=== PATIENT | male | born 1970 | race Caucasian/White ===

== ENCOUNTER 2016-11-18 12:55 | Emergency (ER) | payer OTHER ==
[~2016-11-18] VITALS: Ht 167.6 cm; Wt 70.0 kg
[~2016-11-18 12:55] MED LIST: AMLO2.5T2 PO; CHLO10CA6 PO; CHLO5CAP2 PO; PANT40TA4 PO
[2016-11-18 13:02] VITALS: Ht 167.6 cm; Wt 70.0 kg
--- NOTE | 2016-11-18 13:31 | RADRPT ---
PROCEDURE: CT brain without contrast CLINICAL INDICATION: Head trauma/injury TECHNIQUE: CT of the brain without contrast performed on a multidetector CT scanner, with multiplan ar reformats. One or more of the following dose reduction techniques were used: Automated exposure control, adjustment in mA and / or kV according to patient size, use of iterative reconstructive valerie hnique. CTDIvol = 44 mGy; DLP = 720 mGy-cm. COMPARISON: 05/03/2016 FINDINGS: No acute intracranial hemorrhage is identified. No extra-axial fluid collection is seen. There is no mass effect. No midline shift is identified. Ventricles and sulci are mildly enlarged compatible with generalized volume loss. There are minimal areas of hypodensity in the periventricular - deep white matter which are nonspeci fic but suggestive of chronic small vessel ischemic changes. Dominique-white differentiation is preserve d. Atherosclerotic calcifications of the intracranial internal carotid arteries are noted. There is soft tissue swelling in the superior left periorbital region and adjacent left forehead sca lp without underlying fracture or orbital injury identified. Mastoid air cells and imaged paranasal sinuses grossly clear. IMPRESSION: 1. No evidence of acute intracranial pathology. 2. Mild generalized volume loss, with minimal chronic small vessel ischemic changes. 3. Left periorbital soft tissue/forehead scalp swelling. RPTAT: GG .Gurpreet Zimmerman MD, Date Time Electronically viewed and signed by .Gurpreet Zimmerman MD, on 11/18/2016 13:31 .O/
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
[2016-11-18 14:39] VITALS: BP 135/78; PULSE 79; RESP 19; TEMP 97.9
== END 2016-11-18 15:18 | disposition home or self-care (01) ==
LOC: E/R 12:55
DX: F10.120 Alcohol abuse with intoxication, uncomplicated (principal); R51 Headache
CPT/HCPCS: 70450

== ENCOUNTER 2017-01-31 05:43 | Inpatient (IN) | payer MEDICAID, OTHER ==
[2017-01-31] VITALS (8 sets, daily range): BP systolic 140–169; BP diastolic 63–96; PULSE 62–80; RESP 17–22; TEMP 98.6; Ht 162.6 cm; Wt 70.5 kg
[~2017-01-31] VITALS: Ht 162.6 cm; Wt 70.5 kg
[2017-01-31] MEDS ORDERED: SOD CHLORIDE 0.9% 500 ML IV STA (06:13)
[2017-01-31] MEDS ORDERED: PANTOPRAZOLE 40 MG INJ IV STA ×2 (06:13→09:07)
[2017-01-31 06:50] LABS: ADD SCAN DIFF NO
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
[2017-01-31 06:55] LABS: ABNORMAL IP MESSAGE 1; BASOPHIL # 0.1 10^3/ul (0.0-0.1); BASOPHILS % 1.4 % (0.0-2.0); EOSINOPHILS # 0.2 10^3/ul (0.0-0.5); EOSINOPHILS % 3.5 % (0.0-7.0); HEMATOCRIT 42.4 % (42.0-52.0); HEMOGLOBIN 13.9 g/dl (14.0-18.0); LYMPHOCYTES # 0.9 10^3/ul (0.8-2.9); LYMPHOCYTES % 16.3 % (15.0-51.0); MEAN CORPUSCULAR HEMOGLOBIN 30.9 pg (29.0-33.0); MEAN CORPUSCULAR HGB CONC 32.8 g/dl (32.0-37.0); MEAN CORPUSCULAR VOLUME 94.2 fl (82.0-101.0); MONOCYTE # 0.6 10^3/ul (0.3-0.9); MONOCYTES % 11.2 % (0.0-11.0); NEUTROPHIL # 3.8 10^3/ul (1.6-7.5); NEUTROPHILS % 67.4 % (39.0-77.0); RED CELL DISTRIBUTION WIDTH 15.6 % (11.5-14.5); WHITE BLOOD COUNT 5.7 10^3/ul (4.8-10.8)
[2017-01-31] MEDS ORDERED: ONDANSETRON 4 MG INJ IV STA (07:06)
[2017-01-31 07:12] LABS: INR 0.86; PROTIME 11.7 Sec (12.2-14.2); PT RATIO 0.9
[2017-01-31 07:13] LABS: PARTIAL THROMBOPLASTIN TIME 30.6 Sec (25.0-35.0)
[2017-01-31 07:17] LABS: ALBUMIN 4.6 g/dl (3.3-4.9); MEAN PLATELET VOLUME 10.9 fl (7.4-10.4)
[2017-01-31 07:19] LABS: CREATININE 0.58 mg/dl (0.61-1.24)
[2017-01-31 07:20] LABS: ALBUMIN/GLOBULIN RATIO 0.95; BILIRUBIN,INDIRECT 0.6 mg/dl (0-1.1); BILIRUBIN,TOTAL 0.6 mg/dl (0.2-1.3); CALCIUM 8.9 mg/dl (8.4-10.2); TOTAL PROTEIN 9.4 g/dl (6.1-8.1)
--- NOTE | 2017-01-31 07:39 | RADRPT ---
PROCEDURE: XR Chest. CLINICAL INDICATION: GI bleed TECHNIQUE: Portable single view of the chest COMPARISON: 06/29 FINDINGS: Top normal heart size. Minimally ectatic aorta. Slightly reduced lung volumes without definite foc al infiltrate, pleural effusion, or overt congestive heart failure. No bony abnormality is seen. IMPRESSION: No definite acute pulmonary disease. RPTAT: HLBE Milagros Givens Physician Date Time Electronically viewed and signed by Milagros Givens, Physician on 01/31/2017 07:39 CHARITO/
[2017-01-31 08:01] LABS: PLATELET ESTIMATE PLT APPEAR DECREASED
[2017-01-31 08:02] LABS: PLATELET COUNT 49 10^3/UL (140-415)
[2017-01-31] MEDS ORDERED: PANTOPRAZOLE IV 80 MG in SOD CHLORIDE 0.9% 100 ML IV STA (09:07)
[2017-01-31] MEDS ORDERED: ACETAMINOPHEN 325 MG TAB PO PRN ×2 (09:30→10:00)
[2017-01-31] MEDS ORDERED: ONDANSETRON 4 MG INJ IV PRN ×2 (09:30→10:00)
[2017-01-31] MEDS ORDERED: LORAZEPAM 2 MG INJ IV ONE (09:30)
[2017-01-31] MEDS ORDERED: DOCUSATE SODIUM 100 MG CAP PO PRN (10:00)
[2017-01-31] MEDS ORDERED: ALBUTEROL/IPRATROPIUM (NEB) 3 ML AMP HHN PRN (10:00)
[2017-01-31] MEDS ORDERED: NACL 0.9% 3 ML SYG IV SCH (10:00)
[2017-01-31] MEDS ORDERED: MAGNESIUM HYDROXIDE 30ML CUP PO PRN (10:00)
[2017-01-31] MEDS ORDERED: NA PHOSPHATE/BIPHOS 133 ML ENEMA PR PRN (10:00)
[2017-01-31] MEDS ORDERED: morphine 2 MG INJ IV PRN (10:00)
[2017-01-31] MEDS ORDERED: NITROGLYCERIN (SL) 0.4 MG TAB SL PRN (10:00)
[2017-01-31] MEDS ORDERED: HYDROCODONE/APAP (5/325) TAB PO PRN (10:00)
[2017-01-31] MEDS ORDERED: LORAZEPAM 2 MG INJ IV PRN (10:00)
[2017-01-31] MEDS: SOD CHLORIDE 0.9% 1,000 ML IV SCH ×2 (10:40→19:59)
[2017-01-31] MEDS: OCTREOTIDE 500 MCG in SOD CHLORIDE 0.9% 49 ML IV SCH ×2 (10:56→23:30)
[2017-01-31 11:37] LABS: HAAIG REFLEX REFLEX FILED
--- NOTE | 2017-01-31 11:37 | CONS ---
Date/Time of Note Date/Time of Note DATE: 01/31/17 TIME: 11:36 Assessment/Plan Assessment/Plan Additional Assessment/Plan Acute anemia Evaluate esophageal varices vs other etiology Monitor H&H every 8 hours, transfuse 2 units for hemoglobin less than 7.5 Monitor labs Continue PPI and Octreotide drips EGD tomorrow with Dr. Moncada, pt advised of R/B/A to procedure and provide informed consent to proceed Transaminitis Evaluate if 2/2 to infectious process vs EtOH vs viral Acute Hepatitis panel Abdominal US Trend LFTs Further recommendations depend on clinical course Patient seen in collaboration with Dr. Moncada Consultation Date/Type/Reason Admit Date/Time Jan 31, 2017 at 09:17 Type of Consultation: Gastroenterology Reason for Consultation Acute hematemesis Hx of Present Illness Mr. Brice Robles is a 46-year-old man that presented with reports of abrupt hematemesis that started at 1 AM this morning. Patient states he woke up and started vomiting blood. Patient reports previous episode but unable to provide concise history. Patient has had previous hospitalization for treatment of alcohol intoxication. Patient unable to provide history in regard to current alcohol consumption. Patient unsure of previous endoscopic evaluation for hematemesis. Past Surgical History Past Surgical Hx: no surgical history Social History Smoking Status: Former smoker Exam/Review of Systems Vital Signs Vitals Vital Signs Date Time Temp Pulse Resp B/P Pulse Ox O2 Delivery O2 Flow Rate FiO2 01/31/17 11:01 98.6 80 21 133/82 94 Room Air Exam Constitutional: alert, oriented, well developed, mildly distressed Psych: nl mood/affect Head: normocephalic Eyes: EOMI, nl conjunctiva, nl lids ENMT: nl external ears & nose, blood tinged lips & teeth, nl nasal mucosa & septum Respiratory: clear to auscultation, normal air movement Cardiovascular: regular rate and rhythm Gastrointestinal: soft, non-tender Musculoskeletal: nl extremities to inspection Neurological: MANUSCRIPT READER II-XII intact Results Result Diagram: 01/31/17 0620 01/31/17 0620 Results 24 hrs Laboratory Tests Test 01/31/17 06:20 White Blood Count 5.7 Red Blood Count 4.50 L Hemoglobin 13.9 L Hematocrit 42.4 Mean Corpuscular Volume 94.2 Mean Corpuscular Hemoglobin 30.9 Mean Corpuscular Hemoglobin Concent 32.8 Red Cell Distribution Width 15.6 H Platelet Count 49 L Mean Platelet Volume 10.9 #H Neutrophils % 67.4 Lymphocytes % 16.3 Monocytes % 11.2 H Eosinophils % 3.5 Basophils % 1.4 Nucleated Red Blood Cells % 0.0 Neutrophils # 3.8 Lymphocytes # 0.9 Monocytes # 0.6 Eosinophils # 0.2 Basophils # 0.1 Nucleated Red Blood Cells # 0.0 Platelet Estimate PLT APPEAR DECREASED Large Platelets FEW Prothrombin Time 11.7 L Prothrombin Time Ratio 0.9 INR International Normalized Ratio 0.86 Activated Partial Thromboplast Time 30.6 Sodium Level 147 H Potassium Level 4.0 Chloride Level 105 Carbon Dioxide Level 28 Anion Gap 18 H Blood Urea Nitrogen 5 L Creatinine 0.58 L Glucose Level 98 Calcium Level 8.9 Total Bilirubin 0.6 Direct Bilirubin 0.00 Indirect Bilirubin 0.6 Aspartate Amino Transf (AST/SGOT) 332 H Alanine Aminotransferase (ALT/SGPT) 127 H Alkaline Phosphatase 215 H Total Protein 9.4 H Albumin 4.6 Globulin 4.80 H Albumin/Globulin Ratio 0.95 Medications Medications Current Medications Ondansetron HCl (Zofran Inj) 4 mg Q6H PRN IV NAUSEA AND/OR VOMITING; Start at 10:00 Acetaminophen (Tylenol Tab) 650 mg Q6H PRN PO PAIN LEVEL 1-3 OR FEVER; Start at 10:00 Acetaminophen/ Hydrocodone Bitart ([place] (5/325)) 1 tab Q6H PRN PO MODERATE PAIN LEVEL 4-6; Start 01/31/17 at 10:00 Morphine Sulfate (morphine) 2 mg Q4H PRN IV SEVERE PAIN LEVEL 7-10; Start 01/31 at 10:00 Docusate Sodium (Colace) 100 mg Q12H PRN PO CONSTIPATION; Start 01/31/17 at 10: 00 Magnesium Hydroxide (Milk Of Mag) 30 ml DAILY PRN PO CONSTIPATION; Start at 10:00 Sodium Biphosphate/ Sodium Phosphate (Fleet Enema) 133 ml DAILY PRN ND CONSTIPATION; Start 01/31/17 at 10:00 Lorazepam 1 mg 1 mg Q1H PRN IV CONTROL WITHDRAWAL SYMPTOMS; Start 01/31/17 at 10:00 Sodium Chloride (NS) 1,000 ml @ 100 mls/hr Q10H IV Last administered on t 10:40; Admin Dose 100 MLS/HR; Start 01/31/17 at 09:44 Hydralazine HCl (Apresoline) 10 mg Q6H PRN IV ELEVATED BLOOD PRESSURE; Start at 10:00 Nitroglycerin 1 tab 1 tab Q5M PRN SL ANGINA; Start 01/31/17 at 10:00 Pantoprazole 80 mg/Sodium Chloride 100 ml @ 10 mls/hr Q10H IV ; Start 01/31/17 at 19:00 Octreotide Acetate 500 mcg/ Sodium Chloride 50 ml @ 2.5 mls/hr Q20H IV Last administered on 01/31/17 10:56; Admin Dose 2.5 MLS/HR; Start 01/31/17 at 10:00 Multivitamins/ Thiamine HCl/ Folic Acid/Sodium Chloride (Mvi Adult/ Vitamin B1/ Folic Acid/NS) 1,011.2 ml @ 125 mls/ hr DAILY@09 IVPB ; Start 02/01/17 at 09:00 VICENTA TAN Jan 31, 2017 11:37 Multivitamins/ Thiamine HCl/ Folic Acid/Sodium Chloride (Mvi Adult/ Vitamin B1/ Folic Acid/NS) 1,011.2 ml @ 125 mls/ hr DAILY@09 IVPB ; Start 02/01/17 at 09:00 VICENTA TAN Jan 31, 2017 11:37
[2017-01-31 12:43] LABS: HEPATITIS B CORE ANTIBODY NEGATIVE (NEGATIVE)
--- NOTE | 2017-01-31 14:18 | RADRPT ---
PROCEDURE: Complete abdominal ultrasound. CLINICAL INDICATION: Abdominal pain TECHNIQUE: Dominique scale and color doppler ultrasound images of the abdomen. COMPARISON: None FINDINGS: Pancreas: Not adequately visualized due to overlying bowel gas. Liver: Morphology: Normal in size and contour. Echogenicity: Increased echogenicity of the liver parenchyma suggestive of hepatic steatosis. Focal lesions: None. Main portal vein: Patent with hepatopetal flow. Biliary System: Normal appearing gallbladder wall. No gallstones seen. A small amount of layering sludge is present. No intrahepatic biliary dilatation. Common bile duct diameter: 3.8 mm Kidneys: Right length: 10.0 cm. Right renal cortical thickness is preserved. Left length: 10.8 cm. Left renal cortical thickness is preserved. Normal echogenicity. No hydronephrosis. No renal calculi. No focal renal lesions. Spleen: Normal in size, no focal lesions. No free fluid identified. Normal caliber of the partially visualized aorta. IMPRESSION: Normal gallbladder without gallstones. Increased echogenicity of the liver parenchyma suggestive of hepatic steatosis. RPTAT: AADD .Aayush Duran MD, MD Date Time Electronically viewed and signed by .Aayush Duran MD, MD on 01/31/2017 14:18 .B/
[2017-01-31 14:28] LABS: HEMATOCRIT 37.5 % (42.0-52.0); HEMOGLOBIN 12.2 g/dl (14.0-18.0)
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
[2017-01-31] MEDS: PANTOPRAZOLE IV 80 MG in SOD CHLORIDE 0.9% 100 ML IV SCH (19:59)
[2017-02-01] VITALS (20 sets, daily range): BP systolic 131–184; BP diastolic 71–111; PULSE 58–92; RESP 17–24
[2017-02-01] MEDS: PANTOPRAZOLE IV 80 MG in SOD CHLORIDE 0.9% 100 ML IV SCH ×2 (05:14→15:10)
[2017-02-01] MEDS: SOD CHLORIDE 0.9% 1,000 ML IV SCH ×2 (05:15→15:44)
[2017-02-01] MEDS: OCTREOTIDE 500 MCG in SOD CHLORIDE 0.9% 49 ML IV SCH (06:00)
[2017-02-01 08:03] LABS: HEMATOCRIT 37.4 % (42.0-52.0); HEMOGLOBIN 12.5 g/dl (14.0-18.0)
[2017-02-01] MEDS: hydrALAzine 20 MG INJ IV PRN ×2 (08:21→15:42)
[2017-02-01 08:23] LABS: INR 1.02; PROTIME 13.4 Sec (12.2-14.2)
[2017-02-01 08:24] LABS: PARTIAL THROMBOPLASTIN TIME 30.3 Sec (25.0-35.0)
[2017-02-01 08:51] LABS: THYROID STIMULATING HORMONE 0.139 MIU/L (0.465-4.680)
[2017-02-01] MEDS: MULTIVITAMINS 10 ML, THIAMINE 100 MG, FOLIC ACID 1 MG in SOD CHLORIDE 0.9% 1,000 ML IVPB SCH ×2 (09:00→18:32)
[2017-02-01 09:19] LABS: ADD SCAN DIFF NO
[2017-02-01 09:25] LABS: ABNORMAL IP MESSAGE 1; BASOPHILS % 0.6 % (0.0-2.0); EOSINOPHILS % 0.3 % (0.0-7.0); HEMOGLOBIN 12.5 g/dl (14.0-18.0); LYMPHOCYTES # 0.4 10^3/ul (0.8-2.9); LYMPHOCYTES % 5.3 % (15.0-51.0); MEAN CORPUSCULAR HGB CONC 32.9 g/dl (32.0-37.0); MEAN CORPUSCULAR VOLUME 94.3 fl (82.0-101.0); MEAN PLATELET VOLUME 11.1 fl (7.4-10.4); MONOCYTE # 0.8 10^3/ul (0.3-0.9); MONOCYTES % 12.1 % (0.0-11.0); NEUTROPHIL # 5.7 10^3/ul (1.6-7.5); NEUTROPHILS % 81.4 % (39.0-77.0); RED BLOOD COUNT 4.03 10^6/ul (4.70-6.10); RED CELL DISTRIBUTION WIDTH 15.1 % (11.5-14.5)
[2017-02-01 09:31] LABS: PLATELET COUNT 76 10^3/UL (140-415)
[2017-02-01 10:11] LABS: POTASSIUM 3.6 mmol/L (3.5-5.1)
[2017-02-01 10:14] LABS: CALCIUM 8.5 mg/dl (8.4-10.2); CREATININE 0.59 mg/dl (0.61-1.24); PHOSPHORUS 2.3 mg/dl (2.5-4.9)
[2017-02-01 10:15] LABS: MAGNESIUM 1.7 mg/dl (1.7-2.5)
[2017-02-01 12:27] LABS: HEMATOCRIT 35.9 % (42.0-52.0); HEMOGLOBIN 12.3 g/dl (14.0-18.0)
--- NOTE | 2017-02-01 12:48 | PN ---
Date/Time of Note Date/Time of Note DATE: 02/01/17 TIME: 12:44 Assessment/Plan VTE Prophylaxis VTE Prophylaxis Intervention: ambulation VTE Contraindication Reason: bleeding Lines/Catheters [facility] Peripheral IV Urinary Cath still in place: No Assessment/Plan Chief Complaint/Hosp Course ASSESSMENT a 46-year-old male coming in with hematemesis with a history of daily alcohol use. 1. Hematemesis. Patient scheduled for EGD today. H&H remained stable 2. Abnormal LFTs likely secondary to alcoholic hepatitis continue to monitor 3. Thrombocytopenia likely secondary to chronic liver disease, status post platelet transfusion. 4. History of hypertension. 5. Conjunctivitis Plan 1. EGD today, further GI recommendations postprocedure 2. Continue PPI 3. Monitor liver function tests 4. Monitor platelets 5. As needed antihypertensives 6. DVT prophylaxis with SCDs. Avoid anticoagulation given bleeding risk. 7. Antibacterial eye ointment. 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 abstinence Problems: Subjective 24 Hr Interval Summary Free Text/Dictation Patient is awake alert and oriented comfortable at rest Complaining of itching of his eyes On examination he has bilateral conjunctivitis No further nausea vomiting Exam/Review of Systems Vital Signs Vitals Vital Signs Date Time Temp Pulse Resp B/P Pulse Ox O2 Delivery O2 Flow Rate FiO2 02/01/17 12:14 73 02/01/17 11:44 98.1 20 164/98 96 02/01/17 08:00 Nasal Cannula 2.0 Intake and Output 01/31/17 01/31/17 02/01/17 15:00 23:00 07:00 Intake Total 535 ml 1540.5 ml Output Total 800 ml 1500 ml Balance -265 ml 40.5 ml Exam GENERAL: Well-nourished well-developed gentleman comfortable at rest VITAL SIGNS: per chart NECK: Supple. No JVD or lymphadenopathy. Bilateral conjunctivitis CARDIAC EXAM: S1, S2. No added sounds or murmurs. CHEST: clear bilaterally, No added sounds, rales or wheezes ABDOMEN: Soft, nontender. No guarding or rebound. EXTREMITIES: No cyanosis, clubbing or edema. NEUROLOGIC: Generalized weakness. No focal deficits. Results Result Diagram: 02/01/17 1150 02/01/17 0740 Results 24 hrs Laboratory Tests Test 01/31/17 14:05 02/01/17 07:00 02/01/17 07:05 02/01/17 07:40 Hemoglobin 12.2 L 12.5 L 12.5 L Hematocrit 37.5 L 38.0 L 37.4 L White Blood Count 7.0 # Red Blood Count 4.03 L Mean Corpuscular Volume 94.3 Mean Corpuscular Hemoglobin 31.0 Mean Corpuscular Hemoglobin Concent 32.9 Red Cell Distribution Width 15.1 H Platelet Count 76 #L Mean Platelet Volume 11.1 H Neutrophils % 81.4 H Lymphocytes % 5.3 L Monocytes % 12.1 H Eosinophils % 0.3 Basophils % 0.6 Nucleated Red Blood Cells % 0.0 Neutrophils # 5.7 Lymphocytes # 0.4 L Monocytes # 0.8 Eosinophils # 0.0 Basophils # 0.0 Nucleated Red Blood Cells # 0.0 Prothrombin Time 13.4 Prothrombin Time Ratio 1.0 INR International Normalized Ratio 1.02 Activated Partial Thromboplast Time 30.3 Hemoglobin A1c 5.4 Triglycerides Level 78 Cholesterol Level 318 H LDL Cholesterol, Calculated HDL Cholesterol 166 H Cholesterol/HDL Ratio Thyroid Stimulating Hormone (TSH) 0.139 L Sodium Level 139 Potassium Level 3.6 Chloride Level 98 Carbon Dioxide Level 28 Anion Gap 17 H Blood Urea Nitrogen 9 Creatinine 0.59 L Glucose Level 123 Calcium Level 8.5 Phosphorus Level 2.3 L Magnesium Level 1.7 Test 02/01/17 11:50 Hemoglobin 12.3 L Hematocrit 35.9 L Medications Medications Current Medications Ondansetron HCl (Zofran Inj) 4 mg Q6H PRN IV NAUSEA AND/OR VOMITING; Start at 10:00 Acetaminophen (Tylenol Tab) 650 mg Q6H PRN PO PAIN LEVEL 1-3 OR FEVER; Start at 10:00 Acetaminophen/ Hydrocodone Bitart ([place] (5/325)) 1 tab Q6H PRN PO MODERATE PAIN LEVEL 4-6; Start 01/31/17 at 10:00 Morphine Sulfate (morphine) 2 mg Q4H PRN IV SEVERE PAIN LEVEL 7-10; Start 01/31 at 10:00 Docusate Sodium (Colace) 100 mg Q12H PRN PO CONSTIPATION; Start 01/31/17 at 10: 00 Magnesium Hydroxide (Milk Of Mag) 30 ml DAILY PRN PO CONSTIPATION; Start at 10:00 Sodium Biphosphate/ Sodium Phosphate (Fleet Enema) 133 ml DAILY PRN [place] CONSTIPATION; Start 01/31/17 at 10:00 Lorazepam 1 mg 1 mg Q1H PRN IV CONTROL WITHDRAWAL SYMPTOMS Last administered on 01/31/17 20:31; Admin Dose 1 MG; Start 01/31/17 at 10:00 Sodium Chloride (NS) 1,000 ml @ 100 mls/hr Q10H IV Last administered on 05:15; Admin Dose 100 MLS/HR; Start 01/31/17 at 09:44 Hydralazine HCl (Apresoline) 10 mg Q6H PRN IV ELEVATED BLOOD PRESSURE Last administered on 02/01/17 08:21; Admin Dose 10 MG; Start 01/31/17 at 10:00 Nitroglycerin 1 tab 1 tab Q5M PRN SL ANGINA; Start 01/31/17 at 10:00 Pantoprazole 80 mg/Sodium Chloride 100 ml @ 10 mls/hr Q10H IV Last administered on 02/01/17 05:14; Admin Dose 10 MLS/HR; Start 01/31/17 at 19:00 Octreotide Acetate 500 mcg/ Sodium Chloride 50 ml @ 2.5 mls/hr Q20H IV Last administered on 01/31/17 23:30; Admin Dose 2.5 MLS/HR; Start 01/31/17 at 10:00 Multivitamins/ Thiamine HCl/ Folic Acid/Sodium Chloride (Mvi Adult/ Vitamin B1/ Folic Acid/NS) 1,011.2 ml @ 125 mls/ hr DAILY@09 IVPB ; Start 02/01/17 at 09:00 FRANCESCO SANCHEZ MD, FCCP February 01, 2017 12:48
[2017-02-01] MEDS: CIPROFLOXACIN 0.3% 3.5 GM OPH OINT BOTH EYES SCH ×2 (15:10→21:12)
[2017-02-01] MEDS ORDERED: PROPOFOL 20 ML ONE (16:59)
[2017-02-01] MEDS ORDERED: FENTAnyl 50 MCG/ML VIAL ONE (16:59)
[2017-02-01] MEDS ORDERED: LIDOCAINE 2% (SDV) 5 ML INJ ONE (16:59)
[2017-02-01] MEDS: PANTOPRAZOLE 40 MG INJ IV SCH (18:31)
[2017-02-01 19:07] LABS: HEMATOCRIT 38.3 % (42.0-52.0)
[2017-02-02 00:48] LABS: HEMATOCRIT 36.1 % (42.0-52.0); HEMOGLOBIN 12.4 g/dl (14.0-18.0)
[2017-02-02] MEDS: SOD CHLORIDE 0.9% 1,000 ML IV SCH ×2 (02:09→11:44)
--- NOTE | 2017-02-02 02:11 | GILP ---
DATE OF PROCEDURE: 02/01/2017 DATE: 02/01/2017 NAME OF PROCEDURE: Esophagogastroduodenoscopy with biopsies. SURGEON: Marisela Moncada MD. PREMEDICATION: Monitored anesthesia care by anesthesiologist. INSTRUMENT USED: Olympus panendoscope. TECHNIQUE: After informed consent, with the patient/relatives understanding the procedure, its indic ations, potential risks, and complications, including but not limited to: allergic reaction, bleedin g, perforation or infection, and after all pertinent questions were answered to the patient's satisf action, the patient/relatives signed witnessed informed consent. Following this, premedication was administered slowly IV push under careful cardiovascular and respi ratory monitoring with pulse oximetry, automatic blood pressure and athletic monitor. Once the sedative effect was achieved the patient was place in the left lateral decubitus, the panen doscope was introduced and advanced under visual control. Careful examination of the upper gastrointestinal tract, both on insertion as well as withdrawal of the instrument disclosed the following findings: ESOPHAGUS: The distal esophagus shows small grade I/IV esophageal varices with no stigmata of recen t bleeding. STOMACH: Upon entrance to the stomach, air was insufflated. The gastric mcelroy distended normally. There is significant erythema, edema, and friability of the mucosa consistent with alcoholic gastri tis or gastropathy. Biopsies were obtained to rule out H. pylori infection. PYLORUS: The pylorus appears patent and within normal limits, with no evidence of gastric outlet ob struction. DUODENUM: The duodenal mucosa was carefully examined in the duodenal bulb as well as the second por tion of the duodenum and appears unremarkable with no evidence of duodenitis, ulcer, or neoplasm. The instrument was then withdrawn, the patient tolerated the procedure well and was transfer out of the endoscopy suite awake, and in good condition to continue recovery under observation IMPRESSION: 1. Grade I/IV esophageal varices with no stigmata of recent bleeding. 2. Gastritis, moderate to severe gastritis, likely alcoholic in nature. Rule out Helicobacter pylo ri infection. Biopsies obtained. 3. No active bleeding identified. PLAN: We will discontinue octreotide and Protonix drip. PPI b.i.d. as appropriate. Advance diet a s tolerated. Abstinence will be critical to the patient's well-being. Pathology will be reviewed a s soon as available. Dictated By: MARISELA MONCADA MS/NTS Conf#: [id number] DID#: [id number] CC: MARISELA MONCADA; FAZAL BECKER;*[facility]*
[2017-02-02 03:50] VITALS: BP_SYST 69; RESP 20
[2017-02-02] MEDS: PANTOPRAZOLE 40 MG INJ IV SCH (05:31)
[2017-02-02 07:39] LABS: HEMATOCRIT 37.5 % (42.0-52.0); HEMOGLOBIN 12.6 g/dl (14.0-18.0)
[2017-02-02 08:11] VITALS: BP 148/93; RESP 19
[2017-02-02] MEDS: CIPROFLOXACIN 0.3% 3.5 GM OPH OINT BOTH EYES SCH (08:33)
[2017-02-02 11:28] LABS: ADD SCAN DIFF NO
[2017-02-02 11:48] LABS: ABNORMAL IP MESSAGE 1; BASOPHILS % 0.6 % (0.0-2.0); EOSINOPHILS % 0.6 % (0.0-7.0); HEMATOCRIT 36.9 % (42.0-52.0); HEMOGLOBIN 12.5 g/dl (14.0-18.0); LYMPHOCYTES # 0.3 10^3/ul (0.8-2.9); LYMPHOCYTES % 4.1 % (15.0-51.0); MEAN CORPUSCULAR HEMOGLOBIN 31.6 pg (29.0-33.0); MEAN CORPUSCULAR HGB CONC 33.9 g/dl (32.0-37.0); MEAN CORPUSCULAR VOLUME 93.2 fl (82.0-101.0); MEAN PLATELET VOLUME 10.7 fl (7.4-10.4); MONOCYTE # 0.7 10^3/ul (0.3-0.9); MONOCYTES % 9.7 % (0.0-11.0); NEUTROPHIL # 5.7 10^3/ul (1.6-7.5); NEUTROPHILS % 84.7 % (39.0-77.0); PLATELET COUNT 89 10^3/UL (140-415); RED BLOOD COUNT 3.96 10^6/ul (4.70-6.10); RED CELL DISTRIBUTION WIDTH 14.6 % (11.5-14.5); WHITE BLOOD COUNT 6.8 10^3/ul (4.8-10.8)
[2017-02-02 11:54] LABS: CALCIUM 9.1 mg/dl (8.4-10.2); CREATININE 0.64 mg/dl (0.61-1.24); POTASSIUM 3.2 mmol/L (3.5-5.1)
[2017-02-02 12:08] VITALS: BP 122/72; RESP 19
--- NOTE | 2017-02-02 12:51 | PDOCDIS ---
Discharge Instructions DIAGNOSIS Discharge Diagnosis: severe gastritis CONDITION Patient Condition: Good HOME CARE INSTRUCTIONS: Diet Instructions: RegularSpecial Diet: INPATIENT ACTIVITY: Activity Restrictions: No Restrictions FOLLOW UP/APPOINTMENTS Appointments primary care 1 week. FRANCESCO SANCHEZ MD, [facility] February 02, 2017 12:51
[2017-02-02 12:53] LABS: HEMATOCRIT 40.2 % (42.0-52.0); HEMOGLOBIN 13.4 g/dl (14.0-18.0)
--- NOTE | 2017-02-02 13:17 | DS ---
DATE OF ADMISSION: 01/31/2017 DATE OF DISCHARGE: 02/02/2017 DISCHARGE DIAGNOSES: 1. Grade IV esophageal varices. 2. Moderate to severe gastritis. SUMMARY: This is a 46-year-old gentleman with a history of heavy alcohol consumption, came in with a new onset of hematemesis. No nausea, no vomiting, no hemodynamic compromise. On admission, hemog lobin was stable at 13.9 and he did not require blood transfusion. He drinks 4 to 5 bottles of beer daily. No history of drug abuse. The patient underwent endoscopy by Dr. Coral campbell, was found to have grade I/IV esophageal varices and severe gastritis, with the recommendation to continue proton pump inhibitor b.i.d. Hemodynamic ally stable. Diet was advanced post-procedure and the patient to be discharged home to follow up [facility] primary care physician and gastroenterology in 1 week's time. He should continue his current ant ihypertensives, continue Librium 10 mg p.o. daily x3 days. Continue proton pump inhibitor, Protonix 40 mg p.o. b.i.d. x1 month. CONDITION ON DISCHARGE: Stable. ACTIVITY: As tolerated. DIET: Regular. Dictated By: FRANCESCO HERNANDEZ/LEATHA Conf#: [id number] DID#: [id number]
--- NOTE | 2017-02-02 13:26 | PN ---
Date/Time of Note Date/Time of Note DATE: 02/02/17 TIME: 13:22 Assessment/Plan VTE Prophylaxis VTE Prophylaxis Intervention: SCD's Lines/Catheters IV [facility] [place] Urinary Cath still in place: No Assessment/Plan Assessment/Plan Assessment * Hematemesis controlled * EGD 02/01/17 * Grade I/IV esophageal varices with no stigmata of recent bleeding. . Gastritis, moderate to severe gastritis, likely alcoholic in nature. Rule out Helicobacter pylori infection. Biopsies obtained. No active bleeding identified. * Chronic alcoholism Plan * Stable for outpatient management Subjective 24 Hr Interval Summary Free Text/Dictation * Course reviewed with RN * EGD 02/01/2017 Grade I/IV esophageal varices with no stigmata of recent bleeding. . Gastritis, moderate to severe gastritis, likely alcoholic in nature. Rule out Helicobacter pylori infection. Biopsies obtained. No active bleeding identified. Exam/Review of Systems Vital Signs Vitals Vital Signs Date Time Temp Pulse Resp B/P Pulse Ox O2 Delivery O2 Flow Rate FiO2 02/02/17 08:11 98.3 80 19 148/93 96 02/01/17 19:00 Nasal Cannula 2.0 Intake and Output 02/01/17 02/01/17 02/02/17 15:00 23:00 07:00 Intake Total 500 ml 1861.2 ml Output Total 1900 ml 1700 ml Balance -1400 ml 161.2 ml Exam Constitutional: alert, oriented Head: normocephalic Eyes: nl conjunctiva Neck: non-tender, supple Respiratory: clear to auscultation, normal air movement Cardiovascular: nl pulses, regular rate and rhythm Gastrointestinal: non-tender, soft Musculoskeletal: nl extremities to inspection, nl gait and stance Extremities: normal pulses Results Result Diagram: 02/02/17 1225 02/02/17 1103 Results 24 hrs Laboratory Tests Test 02/01/17 18:36 02/02/17 00:35 02/02/17 06:26 02/02/17 11:03 Hemoglobin 13.0 L 12.4 L 12.6 L 12.5 L Hematocrit 38.3 L 36.1 L 37.5 L 36.9 L White Blood Count 6.8 Red Blood Count 3.96 L Mean Corpuscular Volume 93.2 Mean Corpuscular Hemoglobin 31.6 Mean Corpuscular Hemoglobin Concent 33.9 Red Cell Distribution Width 14.6 H Platelet Count 89 L Mean Platelet Volume 10.7 H Neutrophils % 84.7 H Lymphocytes % 4.1 L Monocytes % 9.7 Eosinophils % 0.6 Basophils % 0.6 Nucleated Red Blood Cells % 0.0 Neutrophils # 5.7 Lymphocytes # 0.3 L Monocytes # 0.7 Eosinophils # 0.0 Basophils # 0.0 Nucleated Red Blood Cells # 0.0 Sodium Level 136 Potassium Level 3.2 L Chloride Level 103 Carbon Dioxide Level 25 Anion Gap 11 Blood Urea Nitrogen 11 Creatinine 0.64 Glucose Level 111 Calcium Level 9.1 Test 02/02/17 12:25 Hemoglobin 13.4 L Hematocrit 40.2 L Medications Medications Current Medications Ondansetron HCl (Zofran Inj) 4 mg Q6H PRN IV NAUSEA AND/OR VOMITING Last administered on 02/01/17 18:31; Admin Dose 4 MG; Start 01/31/17 at 10:00 Acetaminophen (Tylenol Tab) 650 mg Q6H PRN PO PAIN LEVEL 1-3 OR FEVER; Start at 10:00 Acetaminophen/ Hydrocodone Bitart ([place] (5/325)) 1 tab Q6H PRN PO MODERATE PAIN LEVEL 4-6; Start 01/31/17 at 10:00 Morphine Sulfate (morphine) 2 mg Q4H PRN IV SEVERE PAIN LEVEL 7-10; Start 01/31 at 10:00 Docusate Sodium (Colace) 100 mg Q12H PRN PO CONSTIPATION Last administered on 08:33; Admin Dose 100 MG; Start 01/31/17 at 10:00 Magnesium Hydroxide (Milk Of Mag) 30 ml DAILY PRN PO CONSTIPATION; Start at 10:00 Sodium Biphosphate/ Sodium Phosphate (Fleet Enema) 133 ml DAILY PRN [place] CONSTIPATION; Start 01/31/17 at 10:00 Lorazepam 1 mg 1 mg Q1H PRN IV CONTROL WITHDRAWAL SYMPTOMS Last administered on 01/31/17 20:31; Admin Dose 1 MG; Start 01/31/17 at 10:00 Sodium Chloride (NS) 1,000 ml @ 100 mls/hr Q10H IV Last administered on 02:09; Admin Dose 100 MLS/HR; Start 01/31/17 at 09:44 Hydralazine HCl (Apresoline) 10 mg Q6H PRN IV ELEVATED BLOOD PRESSURE Last administered on 02/01/17 15:42; Admin Dose 10 MG; Start 01/31/17 at 10:00 Nitroglycerin 1 tab 1 tab Q5M PRN SL ANGINA; Start 01/31/17 at 10:00 Multivitamins/ Thiamine HCl/ Folic Acid/Sodium Chloride (Mvi Adult/ Vitamin B1/ Folic Acid/NS) 1,011.2 ml @ 125 mls/ hr DAILY@09 IVPB Last administered on 02/01 18:32; Admin Dose 125 MLS/HR; Start 02/01/17 at 09:00 Ciprofloxacin HCl (Ciloxan 0.3% Oph Oint) 1 applic BID BOTH EYES Last administered on 02/02/17 08:33; Admin Dose 1 APPLIC; Start 02/01/17 at 14:00 Pantoprazole (Protonix Iv) 40 mg BID@06,18 IV Last administered on 02/02/17 05: 31; Admin Dose 40 MG; Start 02/01/17 at 18:00 MARISELA METZ MD February 02, 2017 13:26
== END 2017-02-02 12:50 | disposition left against medical advice (07) | DRG 433 ==
LOC: FTE 05:43 → MS4 09:17
PROVIDERS: ADMIT Hospitalist; ATTEND Hospitalist
PROC: 0DJ08ZZ Inspection of Upper Intestinal Tract, Via Natural or Artificial Opening Endoscopic (ICD-10-PCS; principal; 2017-02-01 17:30)
DX: K70.30 Alcoholic cirrhosis of liver without ascites (principal); I85.10 Secondary esophageal varices without bleeding; K70.10 Alcoholic hepatitis without ascites; D69.6 Thrombocytopenia, unspecified; F10.20 Alcohol dependence, uncomplicated; K29.20 Alcoholic gastritis without bleeding; I10 Essential (primary) hypertension; H10.9 Unspecified conjunctivitis
CPT/HCPCS: 36415; 36430; 71010; 76700; 80048; 80053; 80061; 82270; 83036; 83735; 84100; 84439; 84443; 85014; 85018; 85025; 85610; 85730; 86704; 86709; 86803; 86850; 86900; 86901; 87340; 88305; 88312; 93005; 96374; 96375; 96376; 97164; C9113; J0360; J2060; J2354; J2405; J3010; J3411; J7030; J7040; P9035

== ENCOUNTER 2018-11-14 19:40 | Emergency (ER) | payer SELFPAY ==
[~2018-11-14] VITALS: Wt 90.9 kg
[~2018-11-14 19:40] MED LIST changes: +PANT40TA3 PO
[2018-11-14] MEDS ORDERED: DIPHTH/TET/ACEL PERTUSS (ADULT) 0.5 ML VIAL IM* ONE (23:30)
[2018-11-15] MEDS ORDERED: AMOX1TAB10 PO (00:20)
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
[2018-11-15 00:35] VITALS: BP 142/76; PULSE 78; RESP 22
== END 2018-11-15 00:35 | disposition home or self-care (01) ==
LOC: FTE 19:40
DX: S61.254A Open bite of right ring finger without damage to nail, initial encounter (principal); W50.3XXA Accidental bite by another person, initial encounter; Y92.9 Unspecified place or not applicable; Z23 Encounter for immunization
CPT/HCPCS: 90471; 90715